=== PATIENT | female | born 1955 | race Hispanic/Latino ===

== ENCOUNTER 2021-03-02 02:35 | Emergency (ER) | payer OTHER ==
[~2021-03-02] VITALS: Ht 157.5 cm; Wt 74.8 kg
[2021-03-02] VITALS (12 sets, daily range): BP systolic 111–173; BP diastolic 49–87
[2021-03-02] MEDS ORDERED: LEVETIRACETAM 500 MG/5 ML SD VIAL IV ONE (02:49)
[2021-03-02] MEDS ORDERED: 0.9%NACL 1000ML 1,000 ML IV ONE ×2 (03:00→18:30)
[2021-03-02] MEDS: PHARMACY COMMUNICATION MISC SCH ×2 (03:12→03:14)
[2021-03-02 03:22] LABS: BASOPHILS % (AUTO) 0.8 % (0.0-5.0); EOSINOPHILS % (AUTO) 0.8 % (0.0-8.0); HEMATOCRIT 36.8 % (36-48); MEAN CORPUSCULAR HEMOGLOBIN 28.6 pg (27.0-33.0); MEAN CORPUSCULAR HGB CONC 32.6 g/dL (32.0-36.0); MEAN CORPUSCULAR VOLUME 87.8 fL (79-99); MONOCYTES % (AUTO) 9.2 % (3.0-13.0); PLATELET COUNT (AUTO) 256 K/uL (130-400); RED BLOOD CELL COUNT(AUTO) 4.19 MIL/uL (4.00-5.50); RED CELL DISTRIBUTION WIDTH 13.9 % (11.0-15.5)
[2021-03-02] MEDS ORDERED: LEVETIRACETAM 1,500 MG in 0.9%NACL 100ML 100 ML IV SCH ×2 (03:30→06:00)
[2021-03-02 03:31] LABS: CREATININE 0.6 mg/dL (0.5-1.5); POTASSIUM 3.3 mmol/L (3.5-5.1)
[2021-03-02 03:35] LABS: ALBUMIN 3.8 g/dL (3.5-5.0); BILIRUBIN,TOTAL 0.2 mg/dL (0.2-1.0); PHENYTOIN (DILANTIN) 7.4 mcg/mL (10.0-20.0); TOTAL PROTEIN, SERUM 7.2 g/dL (6.0-8.3)
[2021-03-02] MEDS ORDERED: LISI2.5T13 PO (03:59)
[2021-03-02] MEDS ORDERED: ATOR10 PO (03:59)
[2021-03-02] MEDS ORDERED: METF-446 PO (03:59)
[2021-03-02] MEDS ORDERED: PANT40GR PO (03:59)
[2021-03-02] MEDS ORDERED: PHEN100C9 PO (03:59)
[2021-03-02] MEDS ORDERED: TRAZ-185 PO (03:59)
[2021-03-02] MEDS ORDERED: LEVE10006 PO (03:59)
[2021-03-02] MEDS ORDERED: KETOROLAC 30MG VIAL (30MG/ML) IV ONE (04:00)
[2021-03-02] MEDS: PHENYTOIN SODIUM 100 MG ERCAP PO SCH ×2 (05:00→05:51)
[2021-03-02] MEDS ORDERED: LORAZEPAM 2 MG/ML 1 ML VIAL ONE ×3 (06:05→17:46)
[2021-03-02] MEDS ORDERED: PHENYTOIN SODIUM 250MG (50 MG/ML) VIAL ONE (06:16)
[2021-03-02] MEDS ORDERED: LORAZEPAM 2 MG/ML 1 ML VIAL IVP ONE ×3 (06:30→19:00)
[2021-03-02] MEDS ORDERED: NACL 0.9% IV SCH ×2 (09:30→18:30)
[2021-03-02] MEDS ORDERED: PHENYTOIN 100MG (50MG/ML) INJ 100 MG/2 ML ML IV SCH (09:30)
[2021-03-02] MEDS ORDERED: PHENYTOIN IV SCH (09:30)
[2021-03-02] MEDS ORDERED: ACETAMINOPHEN 650 MG SUPPOSITORY RC ONE ×2 (17:22→19:00)
[2021-03-02] MEDS ORDERED: CEFTRIAXONE 2GM VIAL IVP ONE (18:00)
[2021-03-02] MEDS ORDERED: ACYCLOVIR 1000 MG VIAL IV ONE (18:00)
[2021-03-02] MEDS: VANCOMYCIN PROTOCOL PER PHARMACY IV ONE ×2 (18:00→18:56)
[2021-03-02 18:13] LABS: APPEARANCE,URINE CLOUDY (CLEAR); BILIRUBIN,URINE NEGATIVE (NEGATIVE); COLOR,URINE YELLOW (YELLOW); GLUCOSE, URINE (UA) 500 mg/dL (NEGATIVE); KETONES,URINE 15 mg/dL (NEGATIVE); LEUKOCYTE ESTERASE ,URINE SMALL (NEGATIVE); NITRATE,URINE POSITIVE (NEGATIVE); OCCULT BLOOD,URINE TRACE-INTACT (NEGATIVE); PROTEIN,URINE NEGATIVE (NEGATIVE); UROBILINOGEN,URINE 0.2 mg/dL (0.2-1.0)
[2021-03-02 18:18] LABS: BACTERIA,URINE Many /HPF (None Seen); MUCUS,URINE Rare LPF (None Seen); SQUAMOUS EPITHELIAL CELL,UR 0-2 /HPF (0-2)
[2021-03-02] MEDS ORDERED: VANCOMYCIN PROTOCOL PER PHARMACY IV SCH (18:30)
[2021-03-02] MEDS ORDERED: ACYCLOVIR IV SCH (18:30)
[2021-03-02] MEDS ORDERED: COMPOUND IV REFRIGERATED 1 EACH IVSOLN MISC PRN (18:30)
[2021-03-02 18:41] LABS: GLUCOSE, CSF 124 mg/dL (40-70); TOTAL PROTEIN, CSF 35 mg/dL (15-45)
[2021-03-02 18:52] LABS: APPEARANCE,CSF CLEAR (CLEAR); COLOR,CSF COLORLESS (COLORLESS); CSF TOTAL VOLUME 4.5 mL; CSF TUBE NUMBER 1; WHITE BLOOD CELL1,CSF 1 CMM (0-5)
[2021-03-02 18:53] LABS: APPEARANCE2,CSF CLEAR (CLEAR); COLOR2,CSF COLORLESS (COLORLESS); CSF 2ND TUBE NUMBER 4; RED BLOOD CELL1,CSF 3 CMM (0-0)
[2021-03-02] MEDS ORDERED: GADOTERATE MEGLUMINE 10 MMOL/20 ML VIAL IV ONE (19:25)
[2021-03-02] MEDS: VANCOMYCIN 1.25GM/NS 250ML IVPB SCH ×2 (20:01)
[2021-03-02] MEDS ORDERED: COMPOUND IV MISC 1 EACH IVSOLN MISC PRN (20:30)
[2021-03-02 20:36] LABS: BASOPHILS % (AUTO) 0.3 % (0.0-5.0); EOSINOPHILS % (AUTO) 0.1 % (0.0-8.0); LYMPHOCYTES % (AUTO) 12.7 % (21.0-51.0); MEAN CORPUSCULAR HEMOGLOBIN 29.3 pg (27.0-33.0); MEAN CORPUSCULAR HGB CONC 33.3 g/dL (32.0-36.0); MONOCYTES % (AUTO) 6.4 % (3.0-13.0); NEUTROPHILS % (AUTO) 80.1 % (40.0-77.0); PLATELET COUNT (AUTO) 301 K/uL (130-400); RED BLOOD CELL COUNT(AUTO) 4.43 MIL/uL (4.00-5.50); RED CELL DISTRIBUTION WIDTH 14.1 % (11.0-15.5)
[2021-03-02 20:43] LABS: CREATININE 0.5 mg/dL (0.5-1.5); POTASSIUM 3.6 mmol/L (3.5-5.1)
[2021-03-02 21:03] LABS: PHENYTOIN (DILANTIN) 39.1 mcg/mL (10.0-20.0)
[2021-03-02] MEDS: LEVETIRACETAM 1,500 MG in 0.9%NACL 100ML 100 ML IV SCH (22:03)
[2021-03-03] VITALS (11 sets, daily range): BP systolic 114–143; BP diastolic 52–70
[2021-03-03] MEDS: LEVETIRACETAM 1,500 MG in 0.9%NACL 100ML 100 ML IV SCH ×2 (06:11→13:33)
[2021-03-03] MEDS: VANCOMYCIN 1.25GM/NS 250ML IVPB SCH ×2 (08:15)
[2021-03-03 08:55] LABS: BASOPHILS % (AUTO) 0.5 % (0.0-5.0); EOSINOPHILS % (AUTO) 0.3 % (0.0-8.0); HEMATOCRIT 34.7 % (36-48); LYMPHOCYTES % (AUTO) 16.5 % (21.0-51.0); MEAN CORPUSCULAR HEMOGLOBIN 28.8 pg (27.0-33.0); MEAN CORPUSCULAR VOLUME 89.9 fL (79-99); MONOCYTES % (AUTO) 10.5 % (3.0-13.0); NEUTROPHILS % (AUTO) 71.8 % (40.0-77.0); PLATELET COUNT (AUTO) 250 K/uL (130-400); RED BLOOD CELL COUNT(AUTO) 3.86 MIL/uL (4.00-5.50); RED CELL DISTRIBUTION WIDTH 14.1 % (11.0-15.5); WHITE BLOOD COUNT (AUTO) 7.3 K/uL (4.8-10.8)
[2021-03-03 09:03] LABS: CREATININE 0.4 mg/dL (0.5-1.5); POTASSIUM 3.2 mmol/L (3.5-5.1)
[2021-03-03] MEDS ORDERED: LIDOCAINE HCL-MPF 1% 2ML VIAL ONE (09:54)
[2021-03-03] MEDS: POTASSIUM CHLORIDE 20 MEQ/100 ML BAG IV SCH (10:05)
[2021-03-03] MEDS ORDERED: ACYCLOVIR 1000 MG VIAL IV SCH (14:00)
[2021-03-03] MEDS: NACL 0.9% IV SCH ×2 (14:32→21:51)
[2021-03-03] MEDS: ACYCLOVIR IV SCH ×2 (14:32→21:51)
[2021-03-03] MEDS ORDERED: CEFTRIAXONE 1G VIAL ONE (18:46)
[2021-03-03] MEDS ORDERED: CEFTRIAXONE 1G VIAL IVP SCH (19:00)
[2021-03-03] MEDS ORDERED: CEFTRIAXONE 2GM VIAL IVP SCH (19:00)
[2021-03-03] MEDS ORDERED: SOLU-MEDROL 125MG VIAL IVP SCH (22:00)
[2021-03-04 00:09] VITALS: BP 142/71
[2021-03-04 04:46] VITALS: BP 137/70
[2021-03-04] MEDS: NACL 0.9% IV SCH ×2 (05:12→14:41)
[2021-03-04] MEDS: ACYCLOVIR IV SCH ×2 (05:12→14:41)
[2021-03-04 07:51] LABS: BASOPHILS % (AUTO) 0.3 % (0.0-5.0); EOSINOPHILS % (AUTO) 1.6 % (0.0-8.0); HEMATOCRIT 34.5 % (36-48); LYMPHOCYTES % (AUTO) 16.3 % (21.0-51.0); MEAN CORPUSCULAR HEMOGLOBIN 28.6 pg (27.0-33.0); MEAN CORPUSCULAR HGB CONC 32.5 g/dL (32.0-36.0); MEAN CORPUSCULAR VOLUME 88.2 fL (79-99); MONOCYTES % (AUTO) 7.7 % (3.0-13.0); NEUTROPHILS % (AUTO) 73.8 % (40.0-77.0); PLATELET COUNT (AUTO) 269 K/uL (130-400); RED BLOOD CELL COUNT(AUTO) 3.91 MIL/uL (4.00-5.50); RED CELL DISTRIBUTION WIDTH 13.6 % (11.0-15.5); WHITE BLOOD COUNT (AUTO) 6.8 K/uL (4.8-10.8)
[2021-03-04 08:14] LABS: ALBUMIN 3.1 g/dL (3.5-5.0); BILIRUBIN,TOTAL 0.2 mg/dL (0.2-1.0); CREATININE 0.3 mg/dL (0.5-1.5); PHENYTOIN (DILANTIN) 18.2 mcg/mL (10.0-20.0); TOTAL PROTEIN, SERUM 6.4 g/dL (6.0-8.3)
[2021-03-04] MEDS ORDERED: LEVETIRACETAM 1,500 MG in 0.9%NACL 100ML 100 ML IV SCH (09:00)
[2021-03-04] MEDS ORDERED: POTASSIUM CHLORIDE 20 MEQ/100 ML BAG IV SCH (09:30)
[2021-03-04 09:44] VITALS: BP 139/61
[2021-03-04] MEDS: POTASSIUM CHLORIDE 20 MEQ/100 ML BAG IV SCH (10:00)
[2021-03-04] MEDS ORDERED: PHARMACY COMMUNICATION MISC SCH ×2 (10:00)
[2021-03-04] MEDS ORDERED: VALPROIC ACID IV ONE ×2 (10:30)
[2021-03-04] MEDS ORDERED: [UNRECOGNIZED DRUG - OTHER] IV ONE (10:30)
[2021-03-04] MEDS ORDERED: [UNRECOGNIZED DRUG - OTHER] IV ONE (10:30)
[2021-03-04 10:51] VITALS: BP 156/76
[2021-03-04] MEDS ORDERED: LACOSAMIDE IV SCH (11:30)
[2021-03-04] MEDS ORDERED: [UNRECOGNIZED DRUG - OTHER] IV SCH (11:30)
[2021-03-04] MEDS ORDERED: PHENYTOIN SODIUM 250MG (50 MG/ML) VIAL ONE (13:33)
[2021-03-04] MEDS ORDERED: PHENYTOIN 100MG (50MG/ML) INJ 100 MG/2 ML ML IV SCH (14:00)
[2021-03-04 14:50] VITALS: BP 123/51
[2021-03-04] MEDS ORDERED: LORAZEPAM 2 MG/ML 1 ML VIAL ONE (16:03)
[2021-03-04] MEDS ORDERED: LORAZEPAM 2 MG/ML 1 ML VIAL IVP ONE (16:30)
[2021-03-04] MEDS ORDERED: [UNRECOGNIZED DRUG - OTHER] IV SCH (18:00)
[2021-03-04] MEDS ORDERED: VALPROIC ACID IV SCH ×2 (18:00)
[2021-03-04] MEDS ORDERED: [UNRECOGNIZED DRUG - OTHER] IV SCH (18:00)
[2021-03-04] MEDS ORDERED: [UNRECOGNIZED DRUG - OTHER] IVP SCH (22:00)
[2021-03-04] MEDS ORDERED: METHYLPREDNISOLONE SUCC IVP SCH (22:00)
== END 2021-03-04 13:51 | disposition short-term general hospital (02) ==
LOC: EDH 03:35
DX: G40.909 Epilepsy, unspecified, not intractable, without status epilepticus (principal); Z91.14 Patient's other noncompliance with medication regimen; Z20.822 Contact with and (suspected) exposure to COVID-19; Z79.899 Other long term (current) drug therapy; Z79.1 Long term (current) use of non-steroidal anti-inflammatories (NSAID)
CPT/HCPCS: 36415 ×3; 62270; 70450; 70553; 71045; 76856; 80048 ×2; 80053 ×2; 80185 ×5; 80202; 81001; 82140; 82945; 83605; 84132; 84157; 84484; 85025 ×4; 86376; 86694 ×2; 86735 ×2; 86765 ×2; 86787 ×2; 86788; 86789; 86800; 87040 ×2; 87071; 87077; 87088; 87147; 87186; 87205; 87210; 87252; 87635; 87804 ×2; 89051 ×2; 93005; 96365; 96366 ×3; 96367; 96368; 96375; 96376 ×3; 99285; A9575; C9803; J0133 ×2; J0696 ×3; J1165 ×2; J1885; J1953 ×4; J2060 ×3; J3370; J3480; J3490; J7050 ×5; J2930